=== PATIENT | male | born 2005 | race Caucasian/White ===

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

== ENCOUNTER 2023-05-09 11:19 | Day surgery (SDC) | payer BC ==
[~2023-05-09 11:19] MED LIST: Lactated Ringers 1,000 ML IV SCH
[2023-05-09] MEDS ORDERED: Lidocaine 2% 5 ML SDV ONE (12:06)
[2023-05-09] MEDS ORDERED: Propofol 200 MG/20 ML SDV ONE ×4 (12:06→12:28)
[2023-05-09] MEDS ORDERED: Lactated Ringers 1,000 ML IV SCH (12:45)
== END 2023-05-09 13:25 | disposition home or self-care (01) ==
LOC: MW.SDS 11:19
PROVIDERS: ATTEND Surgery
DX: K21.00 Gastro-esophageal reflux disease with esophagitis, without bleeding (principal); K29.50 Unspecified chronic gastritis without bleeding; F90.9 Attention-deficit hyperactivity disorder, unspecified type; R06.6 Hiccough; F32.A Depression, unspecified; F17.290 Nicotine dependence, other tobacco product, uncomplicated; Z79.899 Other long term (current) drug therapy
CPT/HCPCS: 43239; J2704; J7120; 00731; J3490